=== PATIENT | male | born 1950 | race Caucasian/White ===

== ENCOUNTER → 2016-05-25 | Day surgery (SDC) | payer MEDICARE ==
[~2016-05-25] VITALS: Ht 180.3 cm; Wt 100.9 kg
[~2016-05-25] MED LIST: *morphine SULFATE 8 MG/ML PERIprocedure ONLY ONE; ACETAMINOPHEN 1000 MG/100 ML VIAL IV ONE; AMLO10TA2 PO; ASPI1TAB69 PO; BELLADONNA ALKALOIDS/OPIUM 60 MG SUPP ONE; BELLADONNA ALKALOIDS/OPIUM 60 MG SUPP RECTAL ONE; CIPROFLOXACIN/DEXT 400 MG/200 ML IV SCH; DO NOT ADM ANY ANTICOAGULANT DRUGS XX PRN; FAMOTIDINE 20 MG/2 ML VIAL ONE; INSULIN HUMAN REGULAR 1,000 UNITS/10 ML VIAL SQ PRN; LACTATED RINGER'S 1000 ML INJ 1,000 ML IV ONE; LACTATED RINGER'S 1000 ML IV SCH; LEVEMIR SQ; LISI40TA PO; METF1000 PO; METOPROLOL TARTRATE 25 MG TAB PO PRN; MIDAZOLAM HCL 2 MG/2 ML VIAL ONE; MORPHINE SULFATE 4 MG/ML INJ IV PRN; MULTCAP14; NEOSTIGMINE 3 MG/3 ML SYR IV ONE; ONDANSETRON HCL 4 MG/2 ML VIAL IV PUSH PRN; PHENYLEPH/NS 1000 MCG/10 ML SYR IV ONE; PRIL20CA9 PO; PROPOFOL 200 MG/20 ML AMP IV ONE; ROSU1TAB6 PO; SODIUM CHLORID 0.9% 500 ML IV SCH; TAMS0.4C4 PO; TOPR25TA PO; fentaNYL CITRATE 250 MCG/5 ML AMP ONE; oxyCODONE/ACETAMINOPHEN 5 MG/325 MG TAB PO PRN
[2016-05-25 08:57] VITALS: BP 123/66; PULSE 67; RESP 18; TEMP 98.1; O2SAT 96
[2016-05-25 11:38] LABS: BASOPHIL # 0.1 TH/MM3 (0-0.2); BASOPHIL % 1.3 % (0.0-2.0); EOSINOPHIL # 0.2 TH/MM3 (0-0.4); EOSINOPHIL % 1.9 % (0.0-4.0); HEMATOCRIT 41.3 % (39.0-51.0); HEMO FLAGS DIFF FINAL; LYMPH % 25.4 % (9.0-44.0); LYMPHOCYTE # 2.7 TH/MM3 (1.0-4.8); MEAN CELL VOLUME 85.1 FL (80.0-100.0); MEAN CORPUSCULAR HEMOGLOBIN 27.8 PG (27.0-34.0); MEAN CORPUSCULAR HGB CONC 32.6 % (32.0-36.0); MONO % 6.4 % (0.0-8.0); PLATELET COUNT 259 TH/MM3 (150-450); RED BLOOD COUNT 4.86 MIL/MM3 (4.50-5.90); RED CELL DISTRIBUTION WIDTH 13.4 % (11.6-17.2); WHITE BLOOD COUNT 10.8 TH/MM3 (4.0-11.0)
--- NOTE | 2016-05-25 13:45 | EKG ---
Date Performed: 05/25/2016 Time Performed: 08:37:12 PTAGE: 65 years EKG: Sinus rhythm LOW QRS VOLTAGE IN PRECORDIAL LEADS RIGHT BUNDLE BRANCH BLOCK LEFT POSTERIOR FASCICULAR BLOCK ABNORM AL ECG PREVIOUS TRACING : 04/01/2015 11.22 DOCTOR: Wally Taylor Interpretating Date/Time 05/25/2016 13:43:56
--- NOTE | 2016-05-25 15:06 | PD.OP ---
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 He underwent TURBT at that time and did not wish to proceed with BCG chemotherapy. On recent cystoscopy in the office he was demonstrated to have a bladder tumor around the left side of the bladder neck and was scheduled undergo resection. Risk and benefits were discussed preoperatively and he is willing to proceed. Patient was brought to operating room and at from myself as Adama Tom. He was placed in dorsal lithotomy position, prepped and draped in usual sterile fashion, received preprocedure bites, and general endotracheal tube anesthesia was administered. 20 Slovak scope was inserted in the bladder and denney cystoscopy demonstrated bladder tumor approximately 2 cm in size at the left bladder neck region. The prior TUR site along the right lateral wall was negative any tumor. No other tumors were visualized within the bladder. The 24 Slovak sheath was inserted and the Quigley resectoscope was utilized to resect the bladder tumor along the left bladder neck region. This was done without difficulty and sent to pathology. The prior site on the right lateral wall was biopsied using cold cup biopsy forcep through the cystoscope. 3 biopsies were taken and sent to pathology. The area was then fulgurated with the loop resectoscope. No evidence any further tumors were identified. Hemostasis was obtained and he was awoken and transferred from stable condition. He'll follow-up in the office in a few weeks and we will schedule BCG at that time. Miguel Oseguera DO May 25, 2016 15:06
[2016-05-25 16:40] VITALS: BP 137/72; PULSE 87; RESP 20; TEMP 97.8; O2SAT 97
== END | disposition home or self-care (01) ==
LOC: HSDC 08:01
PROVIDERS: ATTEND Urology
DX: C67.5 Malignant neoplasm of bladder neck (principal); Z85.51 Personal history of malignant neoplasm of bladder; Z79.4 Long term (current) use of insulin; E11.9 Type 2 diabetes mellitus without complications
CPT/HCPCS: 00912; 52234; 82948; 85025; 88307; 93005; J0131; J0744; J2250; J2270; J2370; J2710; J3010; J7120; 88305